=== PATIENT | male | born 1965 | race Caucasian/White ===

== ENCOUNTER 2021-04-09 14:32 | Emergency (ER) | payer BC ==
[~2021-04-09] VITALS: Ht 177.8 cm; Wt 99.1 kg
[2021-04-09 14:53] VITALS: TEMP 98.5
[2021-04-09] MEDS ORDERED: CEPHALEXIN500 M1 PO (17:44)
[2021-04-09] MEDS ORDERED: PERCOCET 325 MG1 TA2 PO (17:44)
[2021-04-09] MEDS ORDERED: CRUTCHES MC (17:50)
[2021-04-09 18:07] VITALS: BP 157/82; PULSE 73
== END 2021-04-09 18:17 | disposition home or self-care (01) ==
LOC: COL.ER 14:32
DX: S92.412A Displaced fracture of proximal phalanx of left great toe, initial encounter for closed fracture (principal); S92.512A Displaced fracture of proximal phalanx of left lesser toe(s), initial encounter for closed fracture; E11.9 Type 2 diabetes mellitus without complications; Y03.0XXA Assault by being hit or run over by motor vehicle, initial encounter
CPT/HCPCS: J0696

== ENCOUNTER 2023-06-26 05:34 | Inpatient (IN) | payer BC ==
[~2023-06-26] VITALS: Ht 180.3 cm; Wt 78.9 kg
[2023-06-26] VITALS (820 sets, daily range): BP systolic 108–130; BP diastolic 68–96; PULSE 95–121; TEMP 35.7–37; O2SAT 77–100
[~2023-06-26 05:34] MED LIST: CEPHALEXIN500 M1 PO; CRUTCHES MC; PERCOCET 325 MG1 TA2 PO
[2023-06-26 06:30] LABS: BASO % 0.3 % (0.0-2.0); EOS % 0.3 % (0.0-4.0); GRAN # 9.1 K/mm3 (1.4-6.5); GRAN % 77.1 % (42.2-75.2); HEMATOCRIT 51.6 % (42.0-52.0); HEMOGLOBIN 16.6 g/dl (13.5-18.0); LYMPH % 16.7 % (20.0-51.0); MEAN CELL VOLUME 91 fl (80.0-100.0); MEAN CORPUSCULAR HEMOGLOBIN 29 pg (27-31); MEAN CORPUSCULAR HGB CONC 32 g/dl (33.0-37.0); MEAN PLATELET VOLUME 9.3 fl (7.4-10.4); MONO # 0.5 K/mm3 (0.1-0.6); MONO % 4.5 % (1.7-9.3); PLATELET COUNT 350 K/mm3 (130-400); RED BLOOD COUNT 5.67 M/mm3 (4.20-5.60); REDCELL DISTRIBUTION WIDTH-CV 13.7 % (11.5-14.5)
[2023-06-26 06:43] LABS: ALANINE AMINOTRANSFERASE 838 U/L (0-55); ALBUMIN 4.2 g/dL (3.5-5.0); ALKALINE PHOSPHATASE 1492 U/L (40-150); AST,SGOT 373 U/L (5-34); BILIRUBIN,TOTAL 2.3 mg/dL (0.2-1.2); BLOOD UREA NITROGEN 18 mg/dL (8-26); CALCIUM 10.1 mg/dL (8.4-10.2); CHLORIDE 105 mEq/L (98-107); CREATININE, serum 1.13 mg/dL (0.72-1.25); GLUCOSE 197 mg/dL (70-99); LIPASE 20 U/L (8-78); POTASSIUM 4.3 mEq/L (3.5-4.5); SODIUM 137 mEq/L (136-145); TOTAL PROTEIN 8.9 g/dl (6.2-8.1)
[2023-06-26] MEDS ORDERED: NS 1,000 ML IV ONE ×2 (06:50→07:45)
[2023-06-26] MEDS ORDERED: Ondansetron 4 MG/2 ML VIAL IV ONE (06:50)
[2023-06-26 08:21] LABS: COLLECTION METHOD CLEAN CATCH
[2023-06-26 08:31] LABS: URINE APPEARANCE CLEAR (CLEAR/HAZY); URINE BLOOD 2+ (NEGATIVE); URINE COLOR YELLOW (YELLOW); URINE GLUCOSE 3+ (NEGATIVE); URINE KETONE 4+ (NEGATIVE); URINE NITRATE NEGATIVE (NEGATIVE); URINE PROTEIN(semi-quant) 2+ (NEGATIVE)
[2023-06-26] MEDS ORDERED: fentaNYL 50 MCG/ML 2 ML VIAL IV ONE (08:45)
[2023-06-26 08:58] LABS: SQUAMOUS EPITHELIAL 0-2 /hpf (0-10); URINE BACTERIA RARE /hpf (NONE SEEN); URINE RBC 0-2 /hpf (0-2); URINE WBC 0-2 /hpf (0-2)
[2023-06-26] MEDS ORDERED: GLUCOPHAGE1000 MG PO (09:57)
[2023-06-26] MEDS ORDERED: LIPITOR 40MG TA40 MG PO (09:58)
[2023-06-26] MEDS ORDERED: ASPIRIN 32325 MG/TAB PO (09:58)
[2023-06-26] MEDS ORDERED: NIACIN500 M4 PO (10:05)
[2023-06-26] MEDS ORDERED: FARXIGA10 PO (10:06)
[2023-06-26] MEDS ORDERED: FISH OIL 1000MG1 CAP PO (10:09)
[2023-06-26] MEDS ORDERED: LOPID 600M600 MG/TAB PO (10:10)
[2023-06-26] MEDS ORDERED: DIABETA 5MG5 MG/TAB PO (10:10)
[2023-06-26] MEDS ORDERED: NORCO 325 MG-51 TAB PO (10:11)
[2023-06-26] MEDS ORDERED: NS 1,000 ML IV SCH ×2 (11:15→13:15)
[2023-06-26] MEDS ORDERED: Insulin Human Regular/NS 100 ML IV SCH (11:15)
[2023-06-26] MEDS ORDERED: oxyCODONE 5 MG TAB PO PRN (11:30)
[2023-06-26] MEDS ORDERED: Morphine 4 MG/ML VIAL IV PRN (11:30)
[2023-06-26] MEDS ORDERED: Ondansetron 4 MG/2 ML VIAL IV PRN (11:30)
[2023-06-26] MEDS ORDERED: hydrALAZINE 20 MG/ML 1 ML VIAL IV PRN (11:45)
--- NOTE | 2023-06-26 13:30 | NUR ---
Maintenance Director attempted to meet with patient to complete discharge planning. Patient with multiple staff members at bedside. SW will follow up when patient is available.
[2023-06-26 16:15] LABS: INR 1.2 (0.8-3.0); PROTHROMBIN TIME 12.7 SECONDS (9.7-12.8)
[2023-06-26 16:17] LABS: BLOOD UREA NITROGEN 20 mg/dL (8-26); CALCIUM 8.1 mg/dL (8.4-10.2); CHLORIDE 119 mEq/L (98-107); CREATININE, serum 1.06 mg/dL (0.72-1.25); GLUCOSE 210 mg/dL (70-99); POTASSIUM 3.9 mEq/L (3.5-4.5); SODIUM 139 mEq/L (136-145)
[2023-06-26] MEDS ORDERED: D5 1/2 NS 1,000 ML IV SCH (17:15)
[2023-06-26 18:02] LABS: ARTERIAL BLD GAS O2 SATURATION 96.1 % (92-100); ARTERIAL BLD GAS TCO2 CT 7.5; ARTERIAL BLOOD GAS BASE EXCESS -19.8 (-2-2); ARTERIAL BLOOD GAS HCO3 6.9 meq/L (22-26); ARTERIAL BLOOD GAS PO2 80.8 mmHg (80-100)
[2023-06-26 18:03] LABS: ARTERIAL BLOOD GAS PCO2 19.8 mmHg (35-45); ARTERIAL BLOOD GAS pH 7.16 (7.35-7.45)
[2023-06-26] MEDS ORDERED: *Potassium Replacement Protocol MC SCH ×2 (20:15→21:45)
[2023-06-26] MEDS ORDERED: D5NS 1,000 ML IV SCH (20:15)
[2023-06-26 21:02] LABS: CALCIUM 7.8 mg/dL (8.4-10.2); POTASSIUM 3.5 mEq/L (3.5-4.5)
[2023-06-26] MEDS ORDERED: Potassium Chloride 20 mEq/100 mL IV Soln IV SCH (22:00)
--- NOTE | 2023-06-26 22:09 | NUR ---
PT IS RESTING IN BED. HE IS ALERT AND ORIENTED. FAMILY AT THE BEDSIDE. PT USES THE URINAL. PICC LINE INFUSING INSULIN AND FLUIDS. ROOM AIR, VITAL SIGNS STABLE, BED ALARM ACTIVATED AND CALL CARLSON AT THE BEDSIDE.
[2023-06-26 23:07] LABS: CALCIUM 7.7 mg/dL (8.4-10.2); CREATININE, serum 0.9 mg/dL (0.72-1.25); POTASSIUM 3.2 mEq/L (3.5-4.5)
[2023-06-27] VITALS (481 sets, daily range): BP systolic 127–152; BP diastolic 70–81; PULSE 77–101; TEMP 36.7–36.8; O2SAT 86–100
[2023-06-27 01:32] LABS: CALCIUM 7.9 mg/dL (8.4-10.2); CREATININE, serum 0.89 mg/dL (0.72-1.25); POTASSIUM 4.2 mEq/L (3.5-4.5)
[2023-06-27 03:45] LABS: CALCIUM 8.1 mg/dL (8.4-10.2); CREATININE, serum 0.84 mg/dL (0.72-1.25); POTASSIUM 3.5 mEq/L (3.5-4.5)
[2023-06-27 04:29] LABS: BASO % 0.2 % (0.0-2.0); EOS % 0.1 % (0.0-4.0); GRAN # 8.8 K/mm3 (1.4-6.5); LYMPH # 1.3 K/mm3 (1.2-3.4); LYMPH % 12.2 % (20.0-51.0); MEAN CORPUSCULAR HGB CONC 34 g/dl (33.0-37.0); MEAN PLATELET VOLUME 8.6 fl (7.4-10.4); MONO # 0.8 K/mm3 (0.1-0.6); RED BLOOD COUNT 3.75 M/mm3 (4.20-5.60); REDCELL DISTRIBUTION WIDTH-CV 13.4 % (11.5-14.5)
[2023-06-27 04:45] LABS: HEMATOCRIT 31.8 % (42.0-52.0); MEAN CELL VOLUME 85 fl (80.0-100.0); MEAN CORPUSCULAR HEMOGLOBIN 29 pg (27-31)
[2023-06-27 04:46] LABS: HEMOGLOBIN 10.8 g/dl (13.5-18.0); PLATELET COUNT 201 K/mm3 (130-400)
--- NOTE | 2023-06-27 04:47 | NUR ---
RECEIVED A CALL FROM THE LAB CONCERNING A GLUCOSE LAB VALUE GREATER THEN 1000 FROM THE 1833 LAB DRAW. THE VALUE WAS QUESTIONED A BEDSIDE GLUCOSE WAS CHECKED ABOUT 30 MIN PRIOR AND IT WAS AROUND 190. THE TOOL CARRIER SAID SHE WOULD RERUN THE LAB AND CALLBACK WITH THE RESULTS. PRIOR TO THE INITIAL CALL ABOUT THE ELEVATED GLUCOSE LEVEL THE OTHER LAB RESULTS FROM THAT SAME 1833 SAMPLE HAD BEEN RESULTED. THE PATIENTS POTASSIUM, CALCIUM, AND SODIUM HAD DROPPED SUBSTANTIALLY FROM THE PRIOR LAB RESULTS. THE DOCTOR WAS CALLED AND IV FLUIDS WERE ADJUSTED FOR THE SODIUM LEVEL, CALCIUM GLUCONATE WAS ORDERED FOR THE CALCIUM LEVEL AND POTASSIUM REPLACEMENT WAS ORDERED. DURING THIS TIME ONLY THE IV FLUIDS WERE CHANGED. THIS NURSE WAS WAITING FOR THE NEXT LAB DRAW TO RESULT BEFORE INITIATING THE CALCIUM GLUCONATE AND POTASSIUM THE TOOL CARRIER HAD JUST DRAWN THE 2028 TIMED SAMPLE. THE TOOL CARRIER CALLED AND STATED THE 1833 SAMPLE WAS CONTAMINATED AND SHE WAS GOING TO [place] ALL LABS RESULTING FROM THAT SAMPLE. THE 2028 POTASSIUM, CALCIUM AND SODIUM LAB VALUES RESULTED TO NEAR WHAT THEY HAD BEEN PREVIOUS TO THE 1833 LAB DRAW. POTASSIUM WAS REPLACED BASED OFF OF THE 2028 LAB VALUES. AFTER CONSULTING WITH ISABELLE EVERETT, THE CALCIUM GLUCONATE WAS NOT GIVEN AND THE CHANGED IV FLUIDS REMAINED.
[2023-06-27 05:59] LABS: ALBUMIN 2.7 g/dL (3.5-5.0); BILIRUBIN,TOTAL 1.1 mg/dL (0.2-1.2); CALCIUM 8.1 mg/dL (8.4-10.2); CREATININE, serum 0.81 mg/dL (0.72-1.25); POTASSIUM 3.2 mEq/L (3.5-4.5); TOTAL PROTEIN 5.3 g/dl (6.2-8.1)
[2023-06-27] MEDS ORDERED: Potassium Chloride 100 ML IV SCH (06:30)
[2023-06-27 08:11] LABS: CALCIUM 8.2 mg/dL (8.4-10.2); CREATININE, serum 0.8 mg/dL (0.72-1.25); POTASSIUM 3.5 mEq/L (3.5-4.5)
--- NOTE | 2023-06-27 09:31 | NUR ---
Electronic Scale Assembler And Tester met with patient and family at bedside to complete discharge planning discussion. and two sons present, patient consented to them remaining in room during discussion. Patient and , Cande ([phone]) live in [place], patient sees Dr. Woods as his PCP and uses [facility]. Patient denies having any DME and states he is independent with all activities and still works. Pt states that his is DPOA and they will provide a copy to hospital to be placed on chart. Plan is for pt to return home independently. Discharge plan: [facility]
[2023-06-27] MEDS ORDERED: Dextrose 50% Water 25 GM/50 ML SYRINGE IV PRN (09:45)
[2023-06-27] MEDS ORDERED: Dextrose (Glucose) 15 GM (4 x 3.75 GM) Chewable TABLET PACK PO PRN (09:45)
[2023-06-27] MEDS ORDERED: Glucagon 1 MG VIAL IM PRN (09:45)
[2023-06-27] MEDS ORDERED: Insulin Glargine-ygfn (Lantus) SQ SCH (10:00)
--- NOTE | 2023-06-27 10:27 | NUR ---
Initial visit; Patient thanked It Applications Developer for looking in on him and agreed with It Applications Developer when she stated how nice it is to have so much support from family. His and two sons were present and very friendly and nice.
[2023-06-27] MEDS ORDERED: Iohexol 300 - 100 ML VIAL IV ONE (10:59)
[2023-06-27] MEDS ORDERED: NS 100 ML IV SCH (11:00)
[2023-06-27] MEDS ORDERED: Insulin Lispro (HumaLOG) SQ SCH (12:00)
[2023-06-27] MEDS ORDERED: NIASPAN 500MG500 MG PO (12:14)
--- NOTE | 2023-06-27 12:28 | NUR ---
06/27/23: [id number] EDUCATION CONSULT RECEIVED FOR THIS PATIENT. 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 BLOOD GLUCOSE VALUE TODAY AT 0539: 143 MG/Dl, A1C 9.2%. PATIENT SEES DR. VANGIE RANDALL PCP, AND REPORTS HIS LATEST A1C IN JANUARY 2023 WAS 11%, AT WHICH TIME HE QUIT DRINKING SODA (PREVIOUSLY DRANK 56-68 OZ. OF REGULAR DOCTOR PEPPER DAILY). PRIOR TO THIS, PATIENT REPORTS HIS A1C WAS AROUNG 6.4% FOR "QUITE SOME TIME". PATIENT REPORTS CHECKING FASTING BLOOD GLUCOSE REGULARLY AT HOME VIA FINGERSTICK; STATES PRIOR TO FEELING SICK HIS FASTING BG WAS AVERAGING AROUND 114-130 MG/DL, AND "WAS IN THE 180'S AFTER EATING A DQ BLIZZARD". PATIENT STATES HE HAS BEEN TAKING DM MEDICATIONS FOR 15 YEARS; STARTED WITH METFORMIN THEN PCP ADDED GLYBURIDE AND FARXIGA BUT PATIENT IS UNSURE WHEN THESE MEDS WERE STARTED. PATIENT STATES HIS USUAL BODY WEIGHT IN JANUARY 2023 WAS 217 LB. (98.4KG); WEIGHT TODAY OF 177.7 LB. (80.6KG) FOR A SIGNIFICANT LOSS OF 18.1% X 5 MONTHS. PATIENT STATES HE HAS INTEREST IN SEEING ME FOR OUTPATIENT DIABETES/NUTRITION COUNSELING ONCE ROOT CAUSE OF DKA IS DETERMINED AND PLAN OF CARE ESTABLISHED. PATIENT MAY BE A GOOD CANDIDATE FOR CONTINUOUS GLUCOSE MONITOR (CGM) IF HIS INSURANCE WILL COVER, ESPECIALLY IF HE NEEDS TO CONTINUE INSULIN INJECTIONS. WILL SEND OUTPATIENT REFERRAL REQUEST TO PCP DR. RANDALL FOR CONTINUED DIABETES EDUCATION UPON DISCHARGE. RODRÍGUEZ SELF,,RD,CSSD,LD
--- NOTE | 2023-06-27 12:45 | NUR ---
Assisted up to recliner per patient request. Tolerated transfer well. Call light left within reach.
--- NOTE | 2023-06-27 16:25 | NUR ---
Transfered to medical floor via wheelchair. Alert and oriented and in no distress upon arrival. Family accompanying patient. Tech in room to obtain VS upon arrival.
--- NOTE | 2023-06-27 16:55 | NUR ---
Patient arrived to the medical unit, alert and orinted x 4, denies any pain at this time. Family at bedside.
--- NOTE | 2023-06-27 20:30 | NUR ---
UPON SHIFT ASSSESSMENT, CEE WAS UP IN BED AND AXO X 4. HE HAD MANY VISITORS IN ROOM LEAVING D/T VISITING HOURS. HE C/O 6/10 UPPERGASTRIC PAIN AND HAS REQUESTED PRN MORPHINE. BOWEL SOUNDS ARE AUDIBLE IN ALL QUADRANTS AND. BG IS 144 AND VS ARE STABLE. WILL REASSESS BG. PATIENT ANTICIPATES TIMELY DISCHARGE HE STATED HE WANTS TO MAKE IT IN TIME TO HIS APPOINTMENT WITH HIS PCP FOR FURTHER CARE R/T TO ABNORMAL BIOPSY. VS ARE WNL. CALL LIGHT WITHIN REACH.
--- NOTE | 2023-06-28 | NUR ---
BG RECHECK -196 4 UNITS SLIDING HIGH INSULIN GIVEN.
[2023-06-28 03:48] VITALS: BP 147/80; PULSE 86; TEMP 97.6
--- NOTE | 2023-06-28 05:30 | NUR ---
ROUNDED ON PATIENT-SLEEPING ON LEFT SIDE, NO SIGNS OF DISTRESS.
[2023-06-28 07:02] VITALS: BP 152/85; PULSE 87; TEMP 98.3
[2023-06-28] MEDS ORDERED: Insulin Lispro (HumaLOG) SQ SCH (08:00)
[2023-06-28] MEDS ORDERED: ASPIRIN 81M81 MG/TA2 PO (08:20)
[2023-06-28] MEDS ORDERED: INSULIN GL100 UNIT/2 SQ (08:22)
[2023-06-28] MEDS ORDERED: GLUCOSE TEST ST1 DEV MC (08:23)
[2023-06-28] MEDS ORDERED: GLUTOSE 1515 GM PO (08:23)
[2023-06-28] MEDS ORDERED: BD ALCOHOL1 SWA MC (08:23)
[2023-06-28] MEDS ORDERED: LANCETS MC (08:23)
[2023-06-28] MEDS ORDERED: INSULIN PEN NE1 EAC1 MC (08:23)
[2023-06-28] MEDS ORDERED: FREESTYLE PREC1 EAC5 MC (08:23)
[2023-06-28] MEDS ORDERED: GLUCAGON EMERGEN1 M1 SQ (08:24)
[2023-06-28] MEDS ORDERED: ROXICODONE 55 MG/TAB PO (08:24)
--- NOTE | 2023-06-28 09:59 | NUR ---
Patient alert and oriented x4. Shift assessment complete this morning. States pain feels managed at this time. Orders received to discharge patient and remove PICC line. [facility] IV services removed PICC to right upper arm, patient layed flat for 30 minutes following procedure. Discussed discharge paperwork including new medications/changed medications, follow-up appointments/referrals, and education packets. Discussed PICC removal recovery instructions. Patient and verbalized understanding, patient had sign discharge paperwork due to laying flat. No telemetry present. Patient escorted out by family and staff via wheelchair.
== END 2023-06-28 10:00 | disposition home or self-care (01) | DRG 637 ==
LOC: COL.ER 05:34 → ICU 08:08 → MEDICAL 06-27 16:36
PROVIDERS: Emergency Medicine; Personal Emergency Response Attendant; ADMIT Internal Medicine
PROC: 02HV33Z Insertion of Infusion Device into Superior Vena Cava, Percutaneous Approach (ICD-10-PCS; principal; 2023-06-27)
DX: E11.10 Type 2 diabetes mellitus with ketoacidosis without coma (principal); E43 Unspecified severe protein-calorie malnutrition; B17.9 Acute viral hepatitis, unspecified; C25.9 Malignant neoplasm of pancreas, unspecified; E78.5 Hyperlipidemia, unspecified; T38.3X5A Adverse effect of insulin and oral hypoglycemic [antidiabetic] drugs, initial encounter; N28.1 Cyst of kidney, acquired; E86.0 Dehydration; R74.01 Elevation of levels of liver transaminase levels; I10 Essential (primary) hypertension; K21.9 Gastro-esophageal reflux disease without esophagitis; Z90.49 Acquired absence of other specified parts of digestive tract; Z79.899 Other long term (current) drug therapy; Z68.23 Body mass index [BMI] 23.0-23.9, adult
CPT/HCPCS: C1751; J1650; J1815; J2270; J2405; J3010; J3480; J7030; J7042; Q9967

== ENCOUNTER 2023-06-30 21:12 | Emergency (ER) | payer BC ==
[~2023-06-30] VITALS: Ht 180.3 cm; Wt 77.3 kg
[~2023-06-30 21:12] MED LIST changes: +ASPIRIN 32325 MG/TAB PO; +ASPIRIN 81M81 MG/TA2 PO; +BD ALCOHOL1 SWA MC; +DIABETA 5MG5 MG/TAB PO; +FARXIGA10 PO; +FISH OIL 1000MG1 CAP PO; +FREESTYLE PREC1 EAC5 MC; +GLUCAGON EMERGEN1 M1 SQ; +GLUCOPHAGE1000 MG PO; +GLUCOSE TEST ST1 DEV MC; +GLUTOSE 1515 GM PO; +INSULIN GL100 UNIT/2 SQ; +INSULIN PEN NE1 EAC1 MC; +LANCETS MC; +LIPITOR 40MG TA40 MG PO; +LOPID 600M600 MG/TAB PO; +NIACIN500 M4 PO; +NIASPAN 500MG500 MG PO; +NORCO 325 MG-51 TAB PO; +ROXICODONE 55 MG/TAB PO
[2023-06-30] MEDS ORDERED: NS 1,000 ML IV ONE ×2 (21:30→23:45)
[2023-06-30] MEDS ORDERED: Morphine 4 MG/ML VIAL IV ONE (21:30)
[2023-06-30] MEDS ORDERED: Ondansetron 4 MG/2 ML VIAL IV ONE (21:30)
[2023-06-30 21:42] LABS: BASO % 0.3 % (0.0-2.0); EOS % 0.3 % (0.0-4.0); GRAN # 4.3 K/mm3 (1.4-6.5); GRAN % 65.4 % (42.2-75.2); HEMATOCRIT 35.5 % (42.0-52.0); HEMOGLOBIN 12.5 g/dl (13.5-18.0); LYMPH # 1.4 K/mm3 (1.2-3.4); LYMPH % 21.4 % (20.0-51.0); MEAN CELL VOLUME 84 fl (80.0-100.0); MEAN CORPUSCULAR HEMOGLOBIN 30 pg (27-31); MEAN CORPUSCULAR HGB CONC 35 g/dl (33.0-37.0); MONO # 0.8 K/mm3 (0.1-0.6); MONO % 11.4 % (1.7-9.3); PLATELET COUNT 271 K/mm3 (130-400); RED BLOOD COUNT 4.24 M/mm3 (4.20-5.60); REDCELL DISTRIBUTION WIDTH-CV 13.7 % (11.5-14.5)
[2023-06-30 22:00] LABS: ALBUMIN 3.2 g/dL (3.5-5.0); BILIRUBIN,TOTAL 6.6 mg/dL (0.2-1.2); C-REACTIVE PROTEIN 0.52 mg/dL (0.00-0.50); CALCIUM 10.1 mg/dL (8.4-10.2); CREATININE, serum 0.62 mg/dL (0.72-1.25); POTASSIUM 3.3 mEq/L (3.5-4.5); TOTAL PROTEIN 7.3 g/dl (6.2-8.1)
[2023-07-01 01:33] VITALS: BP 165/86; PULSE 92; TEMP 98.5
== END 2023-07-01 01:33 | disposition short-term general hospital (02) ==
LOC: COL.ER 21:12
PROVIDERS: Emergency Medicine
DX: K86.9 Disease of pancreas, unspecified (principal); R11.2 Nausea with vomiting, unspecified
CPT/HCPCS: J0780; J2270; J2405; J7030